=== PATIENT | male | born 1970 | race Caucasian/White ===

== ENCOUNTER 2021-12-19 07:08 | Emergency (ER) | payer MEDICARE | END 2021-12-19 08:45 | disposition home or self-care (01) | LOC: ER1 07:08 | DX: T28.6XXA Corrosion of esophagus, initial encounter (principal); F41.9 Anxiety disorder, unspecified; I10 Essential (primary) hypertension; Z91.09 Other allergy status, other than to drugs and biological substances | CPT/HCPCS: 99283 ==